=== PATIENT | female | born 1985 | race Caucasian/White ===

== ENCOUNTER → 2017-02-17 | Outpatient (CLI) | payer OTHER ==
--- NOTE | 2017-02-17 12:52 | XR ---
EXAMINATION TYPE: XR knee limited bilateral DATE OF EXAM: 02/17/2017 12:39 PM COMPARISON: NONE HISTORY: Bilateral knee pain TECHNIQUE: Two-view bilateral knees each, upright position FINDINGS: Joint spaces are preserved. No joint effusion is evident. No acute fractures are evident. IMPRESSION: 1. Normal bilateral knees
== END | disposition home or self-care (01) ==
LOC: RADXRMAIN 12:24
PROVIDERS: ATTEND Internal Medicine
DX: M25.561 Pain in right knee (principal); M25.562 Pain in left knee

== ENCOUNTER → 2017-10-16 | Outpatient (CLI) | payer OTHER ==
--- NOTE | 2017-10-17 09:10 | USB ---
Reason for exam: clinical finding. Indicated problem(s): non-bloody discharge in the left breast. Physical Findings: Nurse Summary: left breast upper half more thick/prominent tissue, all soft, nodular, movable, left breast size larger than right (nurse ts). US Breast LT Left breast ultrasound includes all four quadrants, the retroareolar region and axilla. Finding demonstrates prominent duct otherwise within normal limits. Tissues are overall more dense in the left breast. Comparative contralateral images were taken. No solid or cystic lesion seen. These results were verbally communicated with the patient and result sheet given to the patient on 10/16/17. ASSESSMENT: Incomplete: need additional imaging evaluation, BI-RAD 0 RECOMMENDATION: Special view mammogram of both breasts.
--- NOTE | 2017-10-17 09:15 | MM ---
Reason for exam: additional evaluation requested from abnormal screening. MG Diagnostic Mammo w CAD SAJI Bilateral CC and MLO view(s) were taken. The breast tissue is extremely dense which could obscure a lesion on mammography. There is no discrete abnormality. Mammogram show that the patient's fibroglandular tissue is symmetrical. These results were verbally communicated with the patient and result sheet given to the patient on 10/16/17. ASSESSMENT: Negative, BI-RAD 1 RECOMMENDATION: Routine screening mammogram of both breasts at age 42. (unless clinical indication to start sooner) Manage patient on a clinical basis with regard to milky discharge from the left breast.
== END | disposition home or self-care (01) ==
LOC: RADUSWWP 11:21
PROVIDERS: ATTEND Internal Medicine
DX: N61.1 Abscess of the breast and nipple (principal); R92.8 Other abnormal and inconclusive findings on diagnostic imaging of breast
CPT/HCPCS: 77066

== ENCOUNTER 2018-07-22 10:29 | Emergency (ER) | payer OTHER ==
[2018-07-22 10:56] VITALS: RESP 18
--- NOTE | 2018-07-22 11:12 | ED ---
Chest Pain HPI - General Chief Complaint: Chest Pain Stated Complaint: POSS COLLAPSED LUNG Time Seen by Provider: 07/22/18 10:58 Source: patient, RN notes reviewed Mode of arrival: ambulatory Limitations: no limitations - History of Present Illness Initial Comments: 33-year-old female presents emergency Department chief complaint of chest pain. Patient states started yesterday was seen at [facility] for concerns for possible pneumothorax. Patient EKG and chest x-ray and sent home. She states the pain worsened. She does feel short of breath she has some pleuritic chest pain no reproducible chest pain. Patient states that she's had a history of pneumothorax and surgery by Dr. Beckman. Patient reports no fever no chills no URI symptoms. Patient has no history of hypertension, hyperlipidemia, diabetes. Patient states that she has spontaneous pneumothorax in the past. Patient states that she is a former smoker. - Related Data Home Medications Medication Instructions Recorded Confirmed Latanoprost 1 drop BOTH EYES HS 03/18/16 07/22/18 Cyclobenzaprine [Flexeril] 5 mg PO TID 07/22/18 07/22/18 Ranitidine HCl [Zantac] 75 mg PO HS 07/22/18 07/22/18 Previous Rx's Medication Instructions Recorded Ibuprofen [Motrin] 600 mg PO Q8HR PRN #30 tab 07/22/18 Allergies Allergy/AdvReac Type Severity Reaction Status Date / Time diphenhydramine HCl AdvReac "loopy" Verified 07/22/18 11:22 [From Benadryl] Review of Systems ROS Statement: Those systems with pertinent positive or pertinent negative responses have been documented in the HPI. ROS Other: All systems not noted in ROS Statement are negative. EKG Findings - EKG Comments: EKG Findings:: EKG performed at 11:19 normal sinus rhythm with a rate of 74 IL 166 QRS 92 QT/QTC 390/432 Past Medical History Past Medical History: Asthma, GERD/Reflux Additional Past Medical History / Comment(s): spontaneous pneumothorax, ovarian cyst, glaucoma, marfan's syndrome, orthostatic hypotension History of Any Multi-Drug Resistant Organisms: None Reported Past Surgical History: Adenoidectomy Additional Past Surgical History / Comment(s): 2 sections, lymph node biopsy left neck, thoracic surgery to reinflate lung Past Anesthesia/Blood Transfusion Reactions: No Reported Reaction Past Psychological History: No Psychological Hx Reported Smoking Status: Former smoker Past Alcohol Use History: Rare Past Drug Use History: Marijuana - Past Family History Mother Family Medical History: Diabetes Mellitus, Osteoarthritis (OA) Father Family Medical History: Congestive Heart Failure (CHF), Diabetes Mellitus Brother(s) Family Medical History: No Reported History Sister(s) Family Medical History: Diabetes Mellitus Daughter(s) Family Medical History: Asthma Son(s) Family Medical History: Neurologic Disorder (Cerebral palsy cerebral palsy kidney disease) General Exam Limitations: no limitations General appearance: alert, in no apparent distress Head exam: Present: atraumatic, normocephalic, normal inspection Eye exam: Present: normal appearance, PERRL, EOMI. Absent: scleral icterus, conjunctival injection, periorbital swelling Respiratory exam: Present: normal lung sounds bilaterally. Absent: respiratory distress, wheezes, rales, rhonchi, stridor, chest wall tenderness Cardiovascular Exam: Present: regular rate, normal rhythm, normal heart sounds. Absent: systolic murmur, diastolic murmur, rubs, gallop, clicks GI/Abdominal exam: Present: soft, normal bowel sounds. Absent: distended, tenderness, guarding, rebound, rigid Course Vital Signs 07/22/18 07/22/18 10:52 13:21 Temperature 97.9 F Pulse Rate 76 71 Respiratory 18 18 Rate Blood Pressure 127/85 112/78 O2 Sat by Pulse 99 99 Oximetry Chest Pain MDM - MDM 33-year-old female presents emergency department for left-sided lung and chest discomfort. Patient has had a history of pneumothorax with surgical intervention. Patient had lab work, x-ray and EKG and CT which is all unremarkable. Patient's symptoms consistent with pleurisy. Patient will be discharged return parameters were discussed. Disposition Clinical Impression: Pleurisy Disposition: HOME SELF-CARE Condition: Stable Instructions: Pleurisy (DC) Additional Instructions: Please return to the Emergency Department if symptoms worsen or any other concerns. Prescriptions: Ibuprofen [Motrin] 600 mg PO Q8HR PRN #30 tab PRN Reason: Pain Is patient prescribed a controlled substance at d/c from ED?: No Referrals: Higinio Pineda MD [Primary Care Provider] - 1-2 days Time of Disposition: 14:18
[2018-07-22 12:08] LABS: Basophils % (A) 0 %; Eosinophils # (A) 0.2 k/uL (0-0.7); Eosinophils % (A) 1 %; HCT 38.9 % (34.0-46.0); HGB 12.9 gm/dL (11.4-16.0); Lymphocytes # (A) 1.6 k/uL (1.0-4.8); Lymphocytes % (A) 13 %; MCH 27.2 pg (25.0-35.0); MCHC 33.2 g/dL (31.0-37.0); MCV 81.9 fL (80.0-100.0); Mean Platelet Volume 6.5; Monocytes # (A) 0.6 k/uL (0-1.0); Monocytes % (A) 5 %; Neutrophils % (A) 80 %; Platelet Count 410 k/uL (150-450); RBC 4.75 m/uL (3.80-5.40); WBC 12.5 k/uL (3.8-10.6)
--- NOTE | 2018-07-22 12:08 | XR ---
EXAMINATION TYPE: XR chest 2V DATE OF EXAM: 07/22/2018 COMPARISON: 10/01/2017 HISTORY: Chest pressure with history of spontaneous pneumothorax. TECHNIQUE: Frontal and lateral views of the chest are obtained. FINDINGS: There is no focal air space opacity, pleural effusion, or pneumothorax seen. There is sub tle questionable left apical surgical suture versus pleural thickening from the previous pneumothorax . Platelike left basilar subsegmental atelectasis and blunting of the costophrenic angle are seen. Th e cardiac silhouette size is within normal limits. The osseous structures are intact. IMPRESSION: No sizable recurrent pneumothorax. Left apical surgical sutures versus pleural parenchym al thickening are seen in addition to left basal atelectasis and a trace left pleural effusion.
[2018-07-22 12:19] LABS: ALT 36 U/L (9-52); AST 26 U/L (14-36); Albumin 4.1 g/dL (3.5-5.0); Alkaline Phosphatase 93 U/L (38-126); Anion Gap 11 mmol/L; Blood Urea Nitrogen 6 mg/dL (7-17); Calcium 9.7 mg/dL (8.4-10.2); Carbon Dioxide 24 mmol/L (22-30); Chloride 106 mmol/L (98-107); Glucose 116 mg/dL (74-99); Magnesium 1.8 mg/dL (1.6-2.3); Potassium 3.8 mmol/L (3.5-5.1); Sodium 141 mmol/L (137-145); Total Bilirubin 0.6 mg/dL (0.2-1.3); Total Protein 7.7 g/dL (6.3-8.2)
[2018-07-22 12:26] LABS: INR 1.1 (<1.2); Partial Thromboplastin Time 22.4 sec (22.0-30.0); Prothrombin Time 10.4 sec (9.0-12.0)
[2018-07-22 12:44] LABS: D-Dimer 1.36 mg/L FEU (<0.60)
[2018-07-22 12:46] LABS: Creatine Kinase 33 U/L (30-135)
[2018-07-22 13:00] LABS: Creatine Kinase MB <0.2 ng/mL (0.0-2.4); Troponin I <0.012 ng/mL (0.000-0.034)
--- NOTE | 2018-07-22 13:46 | CT ---
EXAMINATION TYPE: CT chest angio for PE DATE OF EXAM: 07/22/2018 COMPARISON: NONE HISTORY: SOB, chest pain, History of Lt sided pneumothorax CT DLP: 173.7 mGycm. Automated Exposure Control for Dose Reduction was Utilized. CONTRAST: CTA scan of the thorax is performed with IV Contrast, patient injected with 100 mL of Isovue 370, pul monary embolism protocol. MIP Images are created on CT scanner and reviewed. FINDINGS: LUNGS: There are surgical sutures within the left upper lung at the left lung apex is seen of the milla st The same date. There is also thickening along the left interlobar fissure and left basilar atelectasi s with a trace left pleural effusion. The lungs are grossly clear, there is no concerning parenchymal mass or nodule identified. There is no pleural effusion or pneumothorax seen. The tracheobronchia l tree is patent. MEDIASTINUM: Probable residual thymic tissue seen within the superior anterior mediastinum. There is satisfactory enhancement of the pulmonary artery and its branches, there is no CT evidence for pulmon sudhir embolism. There are no greater than 1 cm hilar or mediastinal lymph nodes. No cardiomegaly or pericardial effusion is seen. OTHER: Within the left breast axillary tail on coronal image 67 and axial image 70 there is a hyperde nse 6 mm mass with no definitive fatty hilum. This could represent a lymph node, however further eval uation with ultrasound is recommended to ensure this does not represent a solid mass. Left-sided lymp h nodes appear slightly more pronounced than on the right with no gross adenopathy. Breast tissue is dense. IMPRESSION: 1. No recurrent pneumothorax. Postsurgical changes of the left lung with interlobar fissural thickeni ng and trace left pleural effusion as well as left basilar atelectasis. 2. Nonemergent evaluation with left breast ultrasound and axillary ultrasound is recommended for find ing as described above.
[2018-07-22] MEDS ORDERED: MORPHINE SULFATE 2 MG/ML SYRINGE IVP ONE (14:19)
[2018-07-22] MEDS ORDERED: ACET/COD 300 MG/30 MG STARTER PACK 6 TAB BTL PO STA (14:19)
[2018-07-22 14:37] VITALS: BP 116/83; PULSE 89; TEMP 97.8
== END 2018-07-22 14:37 | disposition home or self-care (01) ==
LOC: EC 10:29
DX: R09.1 Pleurisy (principal); R07.9 Chest pain, unspecified; K21.9 Gastro-esophageal reflux disease without esophagitis; Z79.899 Other long term (current) drug therapy; Z88.8 Allergy status to other drugs, medicaments and biological substances; Z87.891 Personal history of nicotine dependence
CPT/HCPCS: 36415; 93005; 85379; 80053; 82550; 82553; 83735; 84484; 85025; 85610; 85730; 71046; 71275; 99285; 96374; J2270; Q9967

== ENCOUNTER 2019-11-16 08:15 | Emergency (ER) | payer OTHER ==
[2019-11-16] MEDS ORDERED: SODIUM CHLORIDE 0.9% 2,000 ML IV STA (08:55)
--- NOTE | 2019-11-16 08:57 | ED ---
General Adult HPI - General Chief complaint: Abdominal Pain Stated complaint: kidney pain/pressure behind eye Time Seen by Provider: 11/16/19 08:35 Source: patient, RN notes reviewed Mode of arrival: ambulatory Limitations: no limitations - History of Present Illness Initial comments: 34-year-old female with a past medical history of asthma, GERD, ovarian cysts, Marfan's presents to the emergency department for a chief complaint of nausea vomiting. Patient states that she was diagnosed with a urinary tract infection 6 days ago. States she took Bactrim for either 3 or 5 days. Patient states that she still has dysuria but that this is improving. She has some mild low back pain as well however this is improving. Patient states now given that everything else is improving she is concerned that she is still having nausea vomiting. She states this has been ongoing for about 4 days. Concerned she is dehydrated. Denies fevers or chills but states she does get hot before she vomits. Denies significant abdominal pain. Denies history of IV drug abuse Patient has no other complaints at this time including shortness of breath, chest pain, abdominal pain, nausea or vomiting, headache, or visual changes. - Related Data Home Medications Medication Instructions Recorded Confirmed Latanoprost 1 drop BOTH EYES HS 03/18/11/16/19 Cyclobenzaprine [Flexeril] 5 mg PO TID PRN 07/22/18 11/16/19 Acetaminophen Tab [Tylenol] 975 mg PO Q4H PRN 11/16/19 11/16/19 Brimonidine Tartrate [Alphagan P 1 drops RIGHT EYE BID 11/16/19 11/16/19 0.2% Ophth Soln] Cetirizine HCl [Zyrtec] 10 mg PO DAILY PRN 11/16/19 11/16/19 [place] 1 tab PO HS 11/16/19 11/16/19 Previous Rx's Medication Instructions Recorded Ondansetron [Zofran ODT] 4 mg PO Q8HR PRN #15 tab 11/16/19 Allergies Allergy/AdvReac Type Severity Reaction Status Date / Time diphenhydramine HCl AdvReac "loopy" Verified 11/16/19 09:58 [From Benadryl] Review of Systems ROS Statement: Those systems with pertinent positive or pertinent negative responses have been documented in the HPI. ROS Other: All systems not noted in ROS Statement are negative. Past Medical History Past Medical History: Asthma, GERD/Reflux Additional Past Medical History / Comment(s): spontaneous pneumothorax, ovarian cyst, glaucoma, marfan's syndrome, orthostatic hypotension History of Any Multi-Drug Resistant Organisms: None Reported Past Surgical History: Adenoidectomy Additional Past Surgical History / Comment(s): 2 sections, lymph node biopsy left neck, thoracic surgery to reinflate lung Past Anesthesia/Blood Transfusion Reactions: No Reported Reaction Past Psychological History: No Psychological Hx Reported Smoking Status: Former smoker Past Alcohol Use History: Rare Past Drug Use History: Marijuana - Past Family History Mother Family Medical History: Diabetes Mellitus, Osteoarthritis (OA) Father Family Medical History: Congestive Heart Failure (CHF), Diabetes Mellitus Brother(s) Family Medical History: No Reported History Sister(s) Family Medical History: Diabetes Mellitus Daughter(s) Family Medical History: Asthma Son(s) Family Medical History: Neurologic Disorder (Cerebral palsy cerebral palsy kidney disease) General Exam Limitations: no limitations General appearance: alert, in no apparent distress Head exam: Present: atraumatic, normocephalic, normal inspection Eye exam: Present: normal appearance, PERRL, EOMI. Absent: scleral icterus, conjunctival injection, periorbital swelling ENT exam: Present: normal exam, normal oropharynx, mucous membranes moist, TM's normal bilaterally, normal external ear exam Neck exam: Present: normal inspection, full ROM. Absent: tenderness, meningismus, lymphadenopathy Respiratory exam: Present: normal lung sounds bilaterally. Absent: respiratory distress, wheezes, rales, rhonchi, stridor Cardiovascular Exam: Present: regular rate, normal rhythm, normal heart sounds. Absent: systolic murmur, diastolic murmur, rubs, gallop, clicks GI/Abdominal exam: Present: soft, normal bowel sounds. Absent: distended, tenderness, guarding, rebound, rigid Back exam: Absent: CVA tenderness (R), CVA tenderness (L) Course Vital Signs 11/16/19 08:30 Temperature 98.1 F Pulse Rate 96 Respiratory 16 Rate Blood Pressure 121/79 O2 Sat by Pulse 98 Oximetry Medical Decision Making - Medical Decision Making Vitals are stable. Radial pulses 2+ bilaterally. Patient does not have any abdominal pain. Nontender to palpation. Patient states dysuria and back pain improved after treatment for a urinary tract infection. However she is still having nausea vomiting. States that this is been ongoing for 4 days. Patient did not have any episodes of emesis here in the emergency department. [place] through the workup. Patient states that her called and her daughter is also having nausea vomiting. Patient thinks she may have a stomach bug. Denies diarrhea. CBC and CMP are unremarkable. Urinalysis is unremarkable. No evidence of acute urinary tract infection. X-ray shows a nonspecific abdomen. No evident obstruction or pneumoperitoneum. At this time patient will be discharged home to follow-up with primary care. She'll be given perception for Zofran. She will return here if she has any worsening symptoms. I discussed this case with attending Dr. Myrick who agrees with this assessment and treatment plan. - Lab Data Result diagrams: 11/16/19 09:09 11/16/19 09:09 Lab Results 11/16/19 11/16/19 11/16/19 Range/Units 09:00 09:00 09:09 WBC (3.8-10.6) k/uL RBC (3.80-5.40) m/uL Hgb (11.4-16.0) gm/dL Hct (34.0-46.0) % MCV (80.0-100.0) fL MCH (25.0-35.0) pg MCHC (31.0-37.0) g/dL RDW (11.5-15.5) % Plt Count (150-450) k/uL Neutrophils % % Lymphocytes % % Monocytes % % Eosinophils % % Basophils % % Neutrophils # (1.3-7.7) k/uL Lymphocytes # (1.0-4.8) k/uL Monocytes # (0-1.0) k/uL Eosinophils # (0-0.7) k/uL Basophils # (0-0.2) k/uL Sodium 137 (137-145) mmol/L Potassium 3.8 (3.5-5.1) mmol/L Chloride 104 (98-107) mmol/L Carbon Dioxide 26 (22-30) mmol/L Anion Gap 7 mmol/L BUN 9 (7-17) mg/dL Creatinine 0.52 (0.52-1.04) mg/dL Est GFR (CKD-EPI)AfAm >90 (>60 ml/min/1.73 sqM) Est GFR (CKD-EPI)NonAf >90 (>60 ml/min/1.73 sqM) Glucose 85 (74-99) mg/dL Calcium 9.2 (8.4-10.2) mg/dL Total Bilirubin 0.3 (0.2-1.3) mg/dL AST 22 (14-36) U/L ALT 32 (4-34) U/L Alkaline Phosphatase 64 (38-126) U/L Total Protein 7.3 (6.3-8.2) g/dL Albumin 4.2 (3.5-5.0) g/dL Amylase 55 (30-110) U/L Lipase 75 (23-300) U/L Urine Color Yellow Urine Appearance Cloudy H (Clear) Urine pH 6.0 (5.0-8.0) Ur Specific [place] 1.020 (1.001-1.035) Urine Protein 1+ (Negative) Urine Glucose (UA) Negative (Negative) Urine Ketones Negative (Negative) Urine Blood Negative (Negative) Urine Nitrite Negative (Negative) Urine Bilirubin Negative (Negative) Urine Urobilinogen <2.0 (<2.0) mg/dL Ur Leukocyte Esterase Negative (Negative) Urine RBC 1 (0-5) /hpf Urine WBC 1 (0-5) /hpf Ur Squamous Epith Cells 12 H (0-4) /hpf Urine Bacteria Rare H (None) /hpf Urine Mucus Many H (None) /hpf Urine HCG, Qual Not Detected (Not Detectd) 11/16/19 Range/Units 09:09 WBC 9.9 (3.8-10.6) k/uL RBC 4.42 (3.80-5.40) m/uL Hgb 11.6 (11.4-16.0) gm/dL Hct 35.7 (34.0-46.0) % MCV 80.7 (80.0-100.0) fL MCH 26.3 (25.0-35.0) pg MCHC 32.6 (31.0-37.0) g/dL RDW 13.5 (11.5-15.5) % Plt Count 308 (150-450) k/uL Neutrophils % 68 % Lymphocytes % 24 % Monocytes % 5 % Eosinophils % 1 % Basophils % 0 % Neutrophils # 6.7 (1.3-7.7) k/uL Lymphocytes # 2.3 (1.0-4.8) k/uL Monocytes # 0.5 (0-1.0) k/uL Eosinophils # 0.1 (0-0.7) k/uL Basophils # 0.0 (0-0.2) k/uL Sodium (137-145) mmol/L Potassium (3.5-5.1) mmol/L Chloride (98-107) mmol/L Carbon Dioxide (22-30) mmol/L Anion Gap mmol/L BUN (7-17) mg/dL Creatinine (0.52-1.04) mg/dL Est GFR (CKD-EPI)AfAm (>60 ml/min/1.73 sqM) Est GFR (CKD-EPI)NonAf (>60 ml/min/1.73 sqM) Glucose (74-99) mg/dL Calcium (8.4-10.2) mg/dL Total Bilirubin (0.2-1.3) mg/dL AST (14-36) U/L ALT (4-34) U/L Alkaline Phosphatase (38-126) U/L Total Protein (6.3-8.2) g/dL Albumin (3.5-5.0) g/dL Amylase (30-110) U/L Lipase (23-300) U/L Urine Color Urine Appearance (Clear) Urine pH (5.0-8.0) Ur Specific [place] (1.001-1.035) Urine Protein (Negative) Urine Glucose (UA) (Negative) Urine Ketones (Negative) Urine Blood (Negative) Urine Nitrite (Negative) Urine Bilirubin (Negative) Urine Urobilinogen (<2.0) mg/dL Ur Leukocyte Esterase (Negative) Urine RBC (0-5) /hpf Urine WBC (0-5) /hpf Ur Squamous Epith Cells (0-4) /hpf Urine Bacteria (None) /hpf Urine Mucus (None) /hpf Urine HCG, Qual (Not Detectd) Disposition Clinical Impression: Nausea and vomiting Disposition: HOME SELF-CARE Condition: Good Instructions (If sedation given, give patient instructions): Acute Nausea and Vomiting (ED) Additional Instructions: Please take Zofran as directed. Follow up with primary care in 1-2 days. Return to the emergency department if you have any worsening symptoms such as worsening pain. Prescriptions: Ondansetron [Zofran ODT] 4 mg PO Q8HR PRN #15 tab PRN Reason: Nausea Is patient prescribed a controlled substance at d/c from ED?: No Referrals: Higinio Pineda MD [Primary Care Provider] - 1-2 days Time of Disposition: 10:47
[2019-11-16 09:33] LABS: Basophils % (A) 0 %; Eosinophils # (A) 0.1 k/uL (0-0.7); Eosinophils % (A) 1 %; HCT 35.7 % (34.0-46.0); HGB 11.6 gm/dL (11.4-16.0); Lymphocytes # (A) 2.3 k/uL (1.0-4.8); Lymphocytes % (A) 24 %; MCH 26.3 pg (25.0-35.0); MCHC 32.6 g/dL (31.0-37.0); MCV 80.7 fL (80.0-100.0); Mean Platelet Volume 7.5; Monocytes # (A) 0.5 k/uL (0-1.0); Monocytes % (A) 5 %; Neutrophils # (A) 6.7 k/uL (1.3-7.7); Neutrophils % (A) 68 %; Platelet Count 308 k/uL (150-450); RBC 4.42 m/uL (3.80-5.40); RDW 13.5 % (11.5-15.5); WBC 9.9 k/uL (3.8-10.6)
[2019-11-16 09:39] LABS: Bacteria,Urine Rare /hpf; Mucus,Urine Many /hpf; RBC,Urine 1 /hpf (0-5); Squamous Epithelial Cell,Urine 12 /hpf (0-4); WBC,Urine 1 /hpf (0-5)
[2019-11-16 09:42] LABS: Appearance,Urine Cloudy (Clear); Color,Urine Yellow; Glucose,Urine (UA) Negative (Negative); Protein,Urine 1+ (Negative)
[2019-11-16 09:43] LABS: Bilirubin,Urine Negative (Negative); Blood,Urine Negative (Negative); Ketones,Urine Negative (Negative); Leukocyte Esterase,Urine Negative (Negative); Nitrite,Urine Negative (Negative); Urobilinogen,Urine <2.0 mg/dL (<2.0)
[2019-11-16 09:46] LABS: ALT 32 U/L (4-34); AST 22 U/L (14-36); African American GFR (CKD) >90 (>60 ml/min/1.73 sqM); Albumin 4.2 g/dL (3.5-5.0); Alkaline Phosphatase 64 U/L (38-126); Amylase 55 U/L (30-110); Anion Gap 7 mmol/L; Blood Urea Nitrogen 9 mg/dL (7-17); Calcium 9.2 mg/dL (8.4-10.2); Carbon Dioxide 26 mmol/L (22-30); Chloride 104 mmol/L (98-107); Glucose 85 mg/dL (74-99); Non-African American GFR(CKD) >90 (>60 ml/min/1.73 sqM); Potassium 3.8 mmol/L (3.5-5.1); Sodium 137 mmol/L (137-145); Total Bilirubin 0.3 mg/dL (0.2-1.3); Total Protein 7.3 g/dL (6.3-8.2)
[2019-11-16] MEDS ORDERED: ONDANSETRON 4 MG/2 ML VIAL IVP STA (10:04)
--- NOTE | 2019-11-16 10:15 | XR ---
KUB HISTORY: Vomiting, right flank pain Frontal KUB and 2 images On bases are clear. There is no evident bowel obstruction or pneumoperitoneum. Bone mineralization is normal. No pathologic calcification evident. Probable phleboliths in the pelvis. IMPRESSION: Nonspecific findings.
[2019-11-16 11:08] VITALS: BP 100/61; PULSE 70; RESP 18; TEMP 98.5
== END 2019-11-16 10:57 | disposition home or self-care (01) ==
LOC: EC 08:15
DX: R11.2 Nausea with vomiting, unspecified (principal); R30.0 Dysuria; M54.5 Low back pain; Q87.40 Marfan syndrome, unspecified; H40.9 Unspecified glaucoma; Z87.891 Personal history of nicotine dependence; Z88.8 Allergy status to other drugs, medicaments and biological substances; Z79.3 Long term (current) use of hormonal contraceptives; Z79.899 Other long term (current) drug therapy; Z87.440 Personal history of urinary (tract) infections; Z87.19 Personal history of other diseases of the digestive system
CPT/HCPCS: 36415; 80053; 82150; 83690; 85025; 81001; 81025; 74018; 99284; 96374; 96361 ×2; J2405

== ENCOUNTER 2020-10-09 18:01 | Emergency (ER) | payer OTHER ==
[2020-10-09 18:06] VITALS: BP 121/78; PULSE 87; RESP 18; TEMP 98.4
--- NOTE | 2020-10-09 18:08 | ED ---
Lower Extremity Injury HPI - General Chief Complaint: Extremity Injury, Lower Stated Complaint: toe injury Time Seen by Provider: 10/09/20 18:07 Source: patient Mode of arrival: ambulatory Limitations: no limitations - History of Present Illness Initial Comments: 35-year-old male presenting to the emergency department with chief complaint of a injury. Patient reports this occurred about one week ago and she continues to have pain in the right toe. Patient reports he dropped a Peps[employer] can on her right big toe. Patient reports pain with flexion of the toe. Denies any significant swelling, ecchymosis. States the pain is gradually improving although still continues to be there. She denies any numbness or tingling. Denies any alleviating or aggravating factors. - Related Data Home Medications Medication Instructions Recorded Confirmed Latanoprost 1 drop BOTH EYES DAILY 03/18/16 10/09/20 Brimonidine Tartrate [Alphagan P 1 drops RIGHT EYE BID 11/16/19 10/09/20 0.2% Ophth Soln] Acetaminophen [Tylenol] 975 mg PO ONCE PRN 10/09/20 10/09/20 Allergies Allergy/AdvReac Type Severity Reaction Status Date / Time diphenhydramine HCl AdvReac "loopy" Verified 10/09/20 19:15 [From Benadryl] Review of Systems ROS Statement: Those systems with pertinent positive or pertinent negative responses have been documented in the HPI. ROS Other: All systems not noted in ROS Statement are negative. Past Medical History Past Medical History: Asthma, GERD/Reflux Additional Past Medical History / Comment(s): spontaneous pneumothorax, ovarian cyst, glaucoma, marfan's syndrome, orthostatic hypotension History of Any Multi-Drug Resistant Organisms: None Reported Past Surgical History: Adenoidectomy Additional Past Surgical History / Comment(s): 2 sections, lymph node biopsy left neck, thoracic surgery to reinflate lung Past Anesthesia/Blood Transfusion Reactions: No Reported Reaction Past Psychological History: No Psychological Hx Reported Smoking Status: Never smoker Past Alcohol Use History: Rare Past Drug Use History: Marijuana - Past Family History Mother Family Medical History: Diabetes Mellitus, Osteoarthritis (OA) Father Family Medical History: Congestive Heart Failure (CHF), Diabetes Mellitus Brother(s) Family Medical History: No Reported History Sister(s) Family Medical History: Diabetes Mellitus Daughter(s) Family Medical History: Asthma Son(s) Family Medical History: Neurologic Disorder (Cerebral palsy cerebral palsy kidney disease) General Exam Limitations: no limitations General appearance: alert, in no apparent distress Head exam: Present: atraumatic, normocephalic, normal inspection Eye exam: Present: normal appearance, PERRL, EOMI Pupils: Present: normal accommodation ENT exam: Present: normal exam, normal oropharynx, mucous membranes moist Neck exam: Present: normal inspection, full ROM. Absent: tenderness Respiratory exam: Present: normal lung sounds bilaterally. Absent: respiratory distress, wheezes, rales Cardiovascular Exam: Present: regular rate, normal rhythm, normal heart sounds Extremities exam: Present: normal inspection (No signs of ecchymosis swelling or erythema), full ROM, tenderness (Mild tenderness to the big toe) Back exam: Present: normal inspection, full ROM Neurological exam: Present: alert, oriented X3, normal gait Psychiatric exam: Present: normal affect, normal mood Skin exam: Present: warm, dry, intact, normal color Course Vital Signs 10/09/20 10/09/20 18:04 19:16 Temperature 98.4 F 98.4 F Pulse Rate 87 87 Respiratory 18 18 Rate Blood Pressure 121/78 121/78 O2 Sat by Pulse 98 98 Oximetry Medical Decision Making - Medical Decision Making 35-year-old male presenting to the emergency department with chief complaint of rectal pain. Physical examination, patient has only mild tenderness of full range of motion. She is otherwise neurovascularly intact. X-rays negative for acute fracture or dislocations. This occurred about one week ago. Patient vised alternate between Tylenol and Motrin for pain control. Return parameters discussed the patient is understanding and agreeable. Case discussed physician. Disposition Clinical Impression: Injury of toe on right foot Disposition: HOME SELF-CARE Condition: Stable Instructions (If sedation given, give patient instructions): Foot Contusion (ED) Additional Instructions: Alternate between Tylenol and Motrin for pain control. Follow with her primary care physician. Return to emergency department if symptoms worsen. Is patient prescribed a controlled substance at d/c from ED?: No Referrals: None,Stated [Primary Care Provider] - 1-2 days Time of Disposition: 18:58
--- NOTE | 2020-10-09 18:52 | XR ---
RESULT: HISTORY: dropped a balbuena on big toe TECHNIQUE: 2 views of the right foot were obtained. COMPARISON: None. FINDINGS: There is no acute fracture or dislocation. The visualized joint spaces are preserved. No radiopaque f oreign body. IMPRESSION: No acute osseous abnormality.
== END 2020-10-09 19:17 | disposition home or self-care (01) ==
LOC: EC 18:01
DX: S99.921A Unspecified injury of right foot, initial encounter (principal); K62.89 Other specified diseases of anus and rectum; Z88.8 Allergy status to other drugs, medicaments and biological substances; W20.8XXA Other cause of strike by thrown, projected or falling object, initial encounter
CPT/HCPCS: 99283

== ENCOUNTER 2021-08-25 18:09 | Emergency (ER) | payer OTHER ==
[2021-08-25 18:27] VITALS: BP 107/46; PULSE 75; RESP 18; TEMP 98.1
--- NOTE | 2021-08-25 18:57 | XR ---
EXAMINATION TYPE: XR chest 2V DATE OF EXAM: 08/25/2021 COMPARISON: 08/27/2018 HISTORY: Right sided chest pain TECHNIQUE: FINDINGS: Heart and mediastinum are normal. Lungs are clear. Diaphragm is normal. Bony thorax appears normal. IMPRESSION: Normal chest. There is clearing of small left pleural reaction compared to old exam..
== END 2021-08-25 21:22 | disposition left against medical advice (07) ==
LOC: EC 18:09
DX: R07.81 Pleurodynia (principal)
CPT/HCPCS: 71046; 99499